=== PATIENT | male | born 1950 | race Caucasian/White ===

== ENCOUNTER 2019-09-07 19:11 | Inpatient (IN) ==
[2019-09-07] MEDS ORDERED: Isovue-370 500 ML BOTTLE IVP ONE (20:03)
[2019-09-07] MEDS ORDERED: 0.9 % Sodium Chloride 1,000 ML IVC ONE (20:07)
[2019-09-07 20:51] LABS: Basophils # 0.1 K/mcL (0.0-0.2); Basophils % 0.4 %; Eosinophils # 0.5 K/mcL (0.0-0.6); Eosinophils % 3.9 %; Hemoglobin 11.1 g/dL (12.9-16.9); Immature Granulocytes % 0.6 % (0-4); Lymphocytes # 1.3 K/mcL (0.6-4.6); Lymphocytes % 10.7 %; Mean Corpuscular Hemoglobin 28.5 pg (28.0-33.3); Mean Corpuscular Volume 94.9 fL (83.0-100.0); Mean Platelet Volume 10.3 fL (9.4-12.4); Monocytes % 8.7 %; Platelet Count 303 K/mcL (140-400); Red Cell Distribution Width 15.2 % (11.5-14.5); Segmented Neutrophils % 75.7 %; White Blood Count 11.9 K/mcL (4.3-11.1)
[2019-09-07 21:11] LABS: Alanine Aminotransferase 12 Units/L (7-52); Albumin 3.4 g/dL (3.5-5.7); Alkaline Phosphatase 92 Units/L (34-104); Aspartate Amino Transferase 20 Units/L (13-39); BUN/Creatinine Ratio 45 (6-26); Bilirubin,Direct 0.2 mg/dL (0.0-0.2); Bilirubin,Indirect 0.4 mg/dL (0.0-1.0); Bilirubin,Total 0.6 mg/dL (0.3-1.0); Blood Urea Nitrogen 38 mg/dL (8-23); Calcium 9.3 mg/dL (8.6-10.3); Carbon Dioxide 27 mEq/L (23-29); Chloride 100 mEq/L (98-107); Globulin 3.5 g/dL (2.4-3.5); Glucose 138 mg/dL (70-105); Osmolality,Calculated 293 (280-300); Sodium 136 mEq/L (136-145); Total Protein 6.9 g/dL (6.4-8.9); eGFR For African Americans > 60 (> 60); eGFR For Non-African Americans > 60 (> 60)
[2019-09-07] MEDS ORDERED: Albuterol 2.5 MG/3 ML NEBULIZER IH ONE (23:13)
[2019-09-07] MEDS ORDERED: *HR* OxyCODONE/APAP 10/325 TABLET PO ONE (23:13)
[2019-09-07] MEDS ORDERED: cefTRIAXone 1,000 MG in Water for inj. (sterile) 10 ML IVP ONE (23:37)
[2019-09-08] MEDS ORDERED: Ondansetron 4 MG/2 ML VIAL IVP PRN (00:13)
[2019-09-08] MEDS ORDERED: Naloxone 0.4 MG/ML INJ IVP PRN (00:13)
[2019-09-08] MEDS ORDERED: D5% in Water 1,000 ML IVC PRN (00:17)
[2019-09-08] MEDS ORDERED: Dextrose Gel 15 GM/37.5 ML TUBE PO PRN ×2 (00:17)
[2019-09-08] MEDS ORDERED: *HR* Dextrose 50 % in Water (Vial) 50 ML VIAL IVP PRN (00:17)
[2019-09-08] MEDS: Ringers Solution, Lactated 1,000 ML IVC SCH ×2 (02:14→15:21)
[2019-09-08 03:40] LABS: Basophils # 0.1 K/mcL (0.0-0.2); Basophils % 0.5 %; Eosinophils # 0.6 K/mcL (0.0-0.6); Eosinophils % 5.8 %; Hematocrit 35.4 % (37.5-50.1); Hemoglobin 10.7 g/dL (12.9-16.9); Immature Granulocytes % 0.5 % (0-4); Lymphocytes # 1.7 K/mcL (0.6-4.6); Lymphocytes % 16.8 %; Mean Corpuscular HGB Conc 30.2 g/dL (31.6-35.5); Mean Corpuscular Hemoglobin 29.2 pg (28.0-33.3); Mean Corpuscular Volume 96.7 fL (83.0-100.0); Mean Platelet Volume 10.4 fL (9.4-12.4); Monocytes % 9.8 %; Neutrophils # 6.7 K/mcL (1.6-8.9); Platelet Count 268 K/mcL (140-400); Red Blood Count 3.66 M/mcL (4.19-5.50); Red Cell Distribution Width 15.2 % (11.5-14.5); Segmented Neutrophils % 66.6 %
[2019-09-08 03:48] LABS: INR 1.4; Prothrombin Time 15.7 Seconds (9.4-12.1)
[2019-09-08 03:56] LABS: Alanine Aminotransferase 10 Units/L (7-52); Albumin 3.2 g/dL (3.5-5.7); Alkaline Phosphatase 86 Units/L (34-104); Aspartate Amino Transferase 18 Units/L (13-39); BUN/Creatinine Ratio 46 (6-26); Bilirubin,Total 0.4 mg/dL (0.3-1.0); Blood Urea Nitrogen 33 mg/dL (8-23); Calcium 8.4 mg/dL (8.6-10.3); Carbon Dioxide 27 mEq/L (23-29); Chloride 103 mEq/L (98-107); Globulin 3.2 g/dL (2.4-3.5); Glucose 130 mg/dL (70-105); Magnesium 1.6 mg/dL (1.6-2.6); Osmolality,Calculated 293 (280-300); Sodium 137 mEq/L (136-145); Total Protein 6.4 g/dL (6.4-8.9); eGFR For African Americans > 60 (> 60); eGFR For Non-African Americans > 60 (> 60)
[2019-09-08] MEDS: Doxycycline 100 MG in 0.9 % Sodium Chloride Mini Bag 100 ML IVPB SCH ×2 (05:06→18:04)
[2019-09-08] MEDS: *HR* Enoxaparin 40 MG/0.4 ML SYRINGE SQ SCH (05:10)
[2019-09-08] MEDS: Aspirin 81 MG TAB.CHEW PO SCH (08:56)
[2019-09-08] MEDS: Loratadine 10 MG TABLET PO SCH (08:56)
[2019-09-08] MEDS: Insulin LISPRO 300 UNITS/3 ML VIAL SQ SCH ×4 (08:56→21:07)
[2019-09-08] MEDS: cefTRIAXone 1,000 MG in Water for inj. (sterile) 10 ML IVP SCH (08:57)
[2019-09-08] MEDS ORDERED: levoFLOXacin 750 MG/150 ML 750 MG/150 ML BAG IVPB SCH (09:00)
[2019-09-08] MEDS: Ipratropium/Albuterol Neb 3 ML IH PRN (09:37)
[2019-09-08] MEDS: *HR* OxyCODONE/APAP 10/325 TABLET PO PRN ×4 (09:42→23:44)
[2019-09-08] MEDS: Miconazole 2% ointment 141 APPL/141 GM TUBE TP SCH ×2 (15:42→21:08)
[2019-09-08 16:09] LABS: Bilirubin,Urine Negative (Negative); Blood,Urine Negative (Negative); Clarity,Urine Clear (Clear); Color,Urine Yellow (Yellow); Glucose,Urine (UA) Normal (Normal); Ketones,Urine Negative (Negative); Leukocyte Esterase,Urine Negative (Negative); Nitrite,Urine Negative (Negative); Protein,Urine Trace mg/dL (Neg-Trace); Specific Gravity,Urine > 1.030 (1.010-1.025); Urobilinogen,Urine Normal (Normal)
[2019-09-08] MEDS: Insulin DETEMIR 100 UNIT/ML X5UNITS SQ SCH (21:07)
[2019-09-09 03:55] LABS: Basophils # 0.1 K/mcL (0.0-0.2); Basophils % 0.7 %; Eosinophils # 0.5 K/mcL (0.0-0.6); Eosinophils % 6.5 %; Hematocrit 34.1 % (37.5-50.1); Hemoglobin 10.3 g/dL (12.9-16.9); Immature Granulocytes % 0.5 % (0-4); Lymphocytes # 2.2 K/mcL (0.6-4.6); Lymphocytes % 28.7 %; Mean Corpuscular HGB Conc 30.2 g/dL (31.6-35.5); Mean Corpuscular Hemoglobin 29.1 pg (28.0-33.3); Mean Corpuscular Volume 96.3 fL (83.0-100.0); Mean Platelet Volume 10.5 fL (9.4-12.4); Monocytes # 0.8 K/mcL (0.0-1.3); Monocytes % 10.3 %; Platelet Count 261 K/mcL (140-400); Red Blood Count 3.54 M/mcL (4.19-5.50); Red Cell Distribution Width 15.4 % (11.5-14.5); Segmented Neutrophils % 53.3 %; White Blood Count 7.6 K/mcL (4.3-11.1)
[2019-09-09 04:12] LABS: BUN/Creatinine Ratio 35 (6-26); Blood Urea Nitrogen 19 mg/dL (8-23); Calcium 8.1 mg/dL (8.6-10.3); Carbon Dioxide 28 mEq/L (23-29); Chloride 105 mEq/L (98-107); Glucose 105 mg/dL (70-105); Magnesium 1.5 mg/dL (1.6-2.6); Osmolality,Calculated 289 (280-300); Phosphorous 2.6 mg/dL (2.7-4.5); Potassium 4.1 mEq/L (3.5-5.1); Sodium 138 mEq/L (136-145); eGFR For African Americans > 60 (> 60); eGFR For Non-African Americans > 60 (> 60)
[2019-09-09] MEDS: *HR* Enoxaparin 40 MG/0.4 ML SYRINGE SQ SCH (06:03)
[2019-09-09] MEDS: Doxycycline 100 MG in 0.9 % Sodium Chloride Mini Bag 100 ML IVPB SCH ×2 (06:04→17:30)
[2019-09-09] MEDS: *HR* OxyCODONE/APAP 10/325 TABLET PO PRN ×4 (06:06→21:45)
[2019-09-09] MEDS: Insulin LISPRO 300 UNITS/3 ML VIAL SQ SCH ×4 (10:37→21:11)
[2019-09-09] MEDS: Loratadine 10 MG TABLET PO SCH (10:56)
[2019-09-09] MEDS: Aspirin 81 MG TAB.CHEW PO SCH (10:56)
[2019-09-09] MEDS: Magnesium Oxide 400 MG TABLET PO SCH ×2 (10:57→21:18)
[2019-09-09] MEDS: cefTRIAXone 1,000 MG in Water for inj. (sterile) 10 ML IVP SCH (10:58)
[2019-09-09] MEDS: Insulin DETEMIR 100 UNIT/ML X5UNITS SQ SCH (21:12)
[2019-09-10] MEDS: Miconazole 2% ointment 141 APPL/141 GM TUBE TP SCH (05:40)
[2019-09-10] MEDS: *HR* Enoxaparin 40 MG/0.4 ML SYRINGE SQ SCH (05:58)
[2019-09-10] MEDS: Doxycycline 100 MG in 0.9 % Sodium Chloride Mini Bag 100 ML IVPB SCH (05:58)
[2019-09-10] MEDS: *HR* OxyCODONE/APAP 10/325 TABLET PO PRN ×4 (06:42→22:18)
[2019-09-10] MEDS: Insulin LISPRO 300 UNITS/3 ML VIAL SQ SCH ×4 (08:09→19:18)
[2019-09-10] MEDS: Magnesium Oxide 400 MG TABLET PO SCH ×2 (08:15→19:19)
[2019-09-10] MEDS: Loratadine 10 MG TABLET PO SCH (08:15)
[2019-09-10] MEDS: cefTRIAXone 1,000 MG in Water for inj. (sterile) 10 ML IVP SCH (08:15)
[2019-09-10] MEDS: Aspirin 81 MG TAB.CHEW PO SCH (08:15)
[2019-09-10 09:20] LABS: Hematocrit 38.5 % (37.5-50.1); Hemoglobin 11.5 g/dL (12.9-16.9); Mean Corpuscular HGB Conc 29.9 g/dL (31.6-35.5); Mean Corpuscular Hemoglobin 29.5 pg (28.0-33.3); Mean Corpuscular Volume 98.7 fL (83.0-100.0); Mean Platelet Volume 9.8 fL (9.4-12.4); Platelet Count 216 K/mcL (140-400); Red Cell Distribution Width 15.2 % (11.5-14.5); White Blood Count 7.6 K/mcL (4.3-11.1)
[2019-09-10 09:41] LABS: BUN/Creatinine Ratio 29 (6-26); Blood Urea Nitrogen 14 mg/dL (8-23); Calcium 8.6 mg/dL (8.6-10.3); Carbon Dioxide 30 mEq/L (23-29); Chloride 102 mEq/L (98-107); Glucose 109 mg/dL (70-105); Magnesium 1.4 mg/dL (1.6-2.6); Osmolality,Calculated 287 (280-300); Potassium 4.1 mEq/L (3.5-5.1); Sodium 138 mEq/L (136-145); eGFR For African Americans > 60 (> 60); eGFR For Non-African Americans > 60 (> 60)
[2019-09-10] MEDS: Furosemide 40 MG TABLET PO SCH (18:00)
[2019-09-10] MEDS: Insulin DETEMIR 100 UNIT/ML X5UNITS SQ SCH (19:18)
[2019-09-10] MEDS: Doxycycline 100 MG CAPSULE PO SCH (19:19)
[2019-09-11] MEDS: *HR* OxyCODONE/APAP 10/325 TABLET PO PRN ×3 (04:32→16:49)
[2019-09-11 05:29] LABS: BUN/Creatinine Ratio 26 (6-26); Blood Urea Nitrogen 14 mg/dL (8-23); Calcium 8.6 mg/dL (8.6-10.3); Carbon Dioxide 34 mEq/L (23-29); Chloride 99 mEq/L (98-107); Glucose 101 mg/dL (70-105); Magnesium 1.6 mg/dL (1.6-2.6); Osmolality,Calculated 285 (280-300); Potassium 4.3 mEq/L (3.5-5.1); Sodium 137 mEq/L (136-145); eGFR For African Americans > 60 (> 60); eGFR For Non-African Americans > 60 (> 60)
[2019-09-11] MEDS: *HR* Enoxaparin 40 MG/0.4 ML SYRINGE SQ SCH (05:57)
[2019-09-11] MEDS: Miconazole 2% ointment 141 APPL/141 GM TUBE TP SCH (05:58)
[2019-09-11] MEDS: lisinopriL 10 MG TABLET PO SCH (08:57)
[2019-09-11] MEDS: Doxycycline 100 MG CAPSULE PO SCH (08:57)
[2019-09-11] MEDS: Aspirin 81 MG TAB.CHEW PO SCH (08:57)
[2019-09-11] MEDS: DilTIAZem CD (24hr) 120 MG CAP.ER.24H PO SCH (08:57)
[2019-09-11] MEDS: Magnesium Oxide 400 MG TABLET PO SCH ×2 (08:57→20:20)
[2019-09-11] MEDS: cefTRIAXone 1,000 MG in Water for inj. (sterile) 10 ML IVP SCH (08:58)
[2019-09-11] MEDS: Loratadine 10 MG TABLET PO SCH (08:58)
[2019-09-11] MEDS: Furosemide 40 MG TABLET PO SCH ×2 (08:58→16:44)
[2019-09-11] MEDS: Insulin LISPRO 300 UNITS/3 ML VIAL SQ SCH ×4 (08:59→20:08)
[2019-09-11] MEDS: Insulin DETEMIR 100 UNIT/ML X5UNITS SQ SCH (20:08)
[2019-09-11] MEDS: Cefdinir 300 MG CAPSULE PO SCH (20:19)
[2019-09-11] MEDS ORDERED: Ketorolac 15 MG/ML VIAL IVP ONE (23:07)
[2019-09-12] MEDS: *HR* Enoxaparin 40 MG/0.4 ML SYRINGE SQ SCH (05:28)
[2019-09-12] MEDS: Insulin LISPRO 300 UNITS/3 ML VIAL SQ SCH ×4 (08:47→21:07)
[2019-09-12] MEDS: Cefdinir 300 MG CAPSULE PO SCH ×2 (08:47→21:34)
[2019-09-12] MEDS: Furosemide 40 MG TABLET PO SCH ×2 (08:48→18:07)
[2019-09-12] MEDS: Aspirin 81 MG TAB.CHEW PO SCH (08:48)
[2019-09-12] MEDS: Magnesium Oxide 400 MG TABLET PO SCH (08:48)
[2019-09-12] MEDS: Loratadine 10 MG TABLET PO SCH (08:48)
[2019-09-12] MEDS: Miconazole 2% ointment 141 APPL/141 GM TUBE TP SCH (08:48)
[2019-09-12] MEDS: lisinopriL 10 MG TABLET PO SCH (08:49)
[2019-09-12] MEDS: *HR* OxyCODONE/APAP 10/325 TABLET PO PRN ×4 (08:55→22:13)
[2019-09-12] MEDS: DilTIAZem CD (24hr) 120 MG CAP.ER.24H PO SCH (08:56)
[2019-09-12] MEDS: Ipratropium/Albuterol Neb 3 ML IH PRN (09:20)
[2019-09-12] MEDS: Insulin DETEMIR 100 UNIT/ML X5UNITS SQ SCH (21:16)
[2019-09-13 01:35] VITALS: BP 98/70
[2019-09-13] MEDS: *HR* OxyCODONE/APAP 10/325 TABLET PO PRN ×4 (02:20→16:30)
[2019-09-13] MEDS: *HR* Enoxaparin 40 MG/0.4 ML SYRINGE SQ SCH (06:05)
[2019-09-13 06:33] LABS: Hematocrit 35.5 % (37.5-50.1); Mean Corpuscular Hemoglobin 29.5 pg (28.0-33.3); Mean Corpuscular Volume 95.2 fL (83.0-100.0); Platelet Count 196 K/mcL (140-400); Red Blood Count 3.73 M/mcL (4.19-5.50); White Blood Count 7.2 K/mcL (4.3-11.1)
[2019-09-13 06:49] LABS: BUN/Creatinine Ratio 26 (6-26); Blood Urea Nitrogen 14 mg/dL (8-23); Calcium 8.3 mg/dL (8.6-10.3); Carbon Dioxide 34 mEq/L (23-29); Chloride 95 mEq/L (98-107); Glucose 104 mg/dL (70-105); Osmolality,Calculated 277 (280-300); Potassium 4.2 mEq/L (3.5-5.1); Sodium 133 mEq/L (136-145); eGFR For African Americans > 60 (> 60); eGFR For Non-African Americans > 60 (> 60)
[2019-09-13] MEDS: Insulin LISPRO 300 UNITS/3 ML VIAL SQ SCH (08:08)
[2019-09-13] MEDS: Aspirin 81 MG TAB.CHEW PO SCH (08:44)
[2019-09-13] MEDS: DilTIAZem CD (24hr) 120 MG CAP.ER.24H PO SCH (08:44)
[2019-09-13] MEDS: Furosemide 40 MG TABLET PO SCH (08:44)
[2019-09-13] MEDS: Cefdinir 300 MG CAPSULE PO SCH (08:45)
[2019-09-13] MEDS: Loratadine 10 MG TABLET PO SCH (08:48)
[2019-09-13] MEDS: lisinopriL 10 MG TABLET PO SCH (08:48)
[2019-09-13] MEDS: Miconazole 2% ointment 141 APPL/141 GM TUBE TP SCH (08:48)
== END 2019-09-13 16:50 | DRG 871 ==
LOC: 3BNU 19:11 → EMEROOARM 19:11 → SUATTDRO 09-08 01:06 → 3BNU 09-08 02:09
PROVIDERS: ADMIT Family Medicine; ATTEND Internal Medicine

== ENCOUNTER 2020-08-25 20:10 | Inpatient (IN) ==
[2020-08-25 22:20] LABS: Eosinophils % 1.4 %
[2020-08-25 22:22] LABS: Basophils % 0.3 %; Eosinophils # 0.2 K/mcL (0.0-0.6); Hemoglobin 11.3 g/dL (12.9-16.9); Immature Granulocytes % 0.7 % (0-4); Lymphocytes # 1.4 K/mcL (0.6-4.6); Lymphocytes % 9.1 %; Mean Corpuscular HGB Conc 29.7 g/dL (31.6-35.5); Mean Corpuscular Hemoglobin 29.5 pg (28.0-33.3); Mean Corpuscular Volume 99.2 fL (83.0-100.0); Mean Platelet Volume 10.5 fL (9.4-12.4); Monocytes % 6.4 %; Neutrophils # 12.9 K/mcL (1.6-8.9); Platelet Count 264 K/mcL (140-400); Red Blood Count 3.83 M/mcL (4.19-5.50); Red Cell Distribution Width 15.5 % (11.5-14.5); Segmented Neutrophils % 82.1 %; White Blood Count 15.7 K/mcL (4.3-11.1)
[2020-08-25 22:26] LABS: Basophils # 0.1 K/mcL (0.0-0.2)
[2020-08-25 22:43] LABS: BUN/Creatinine Ratio 28 (6-26); Blood Urea Nitrogen 22 mg/dL (8-23); Calcium 8.3 mg/dL (8.6-10.3); Carbon Dioxide 35 mEq/L (23-29); Chloride 98 mEq/L (98-107); Glucose 133 mg/dL (70-105); Osmolality,Calculated 295 (280-300); Potassium 4.5 mEq/L (3.5-5.1); Sodium 140 mEq/L (136-145); eGFR For African Americans > 60 (> 60); eGFR For Non-African Americans > 60 (> 60)
[2020-08-25] MEDS ORDERED: Furosemide 40 MG/4 ML VIAL IVP ONE (23:28)
[2020-08-25 23:58] LABS: VBG HCO3 41 mEq/L (21-27); VBG PCO2 86 mmHg (41-51); VBG PH 7.28 pH Units (7.32-7.42); VBG PO2 143 mmHg (25-50)
[2020-08-26] MEDS ORDERED: *HR* OxyCODONE/APAP 5/325 TABLET PO ONE (00:11)
[2020-08-26 00:18] LABS: ABG Base Excess 9 mEq/L (-2 to 3); ABG HCO3 39 mEq/L (21-27); ABG Oxygen Saturation 94 % (95-98); ABG PCO2 80 mmHg (35-45); ABG PH 7.29 pH Units (7.32-7.45); ABG PO2 84 mmHg (85-104); ABG TCO2 41 mEq/L (20-26)
[2020-08-26] MEDS ORDERED: *HR* FentaNYL (PF) 100 MCG/2 ML VIAL IVP ONE (00:55)
[2020-08-26] MEDS ORDERED: Ondansetron 4 MG/2 ML VIAL IVP PRN (01:10)
[2020-08-26] MEDS ORDERED: Naloxone 0.4 MG/ML INJ IVP PRN (01:10)
[2020-08-26] MEDS ORDERED: Acetaminophen 325 MG TABLET PO PRN (01:10)
[2020-08-26] MEDS ORDERED: *HR* Dextrose 50 % in Water (Vial) 50 ML VIAL IVP PRN (02:06)
[2020-08-26] MEDS ORDERED: D5% in Water 1,000 ML IVC PRN (02:06)
[2020-08-26] MEDS ORDERED: Dextrose Gel 15 GM/37.5 ML TUBE PO PRN ×2 (02:06)
[2020-08-26 02:09] LABS: Adenovirus Not Detected (Not Detect); Bordetella Pertussis Not Detected (Not Detect); Chlamydophila pneumoniae Not Detected (Not Detect); Coronavirus 229E Not Detected (Not Detect); Coronavirus HKU1 Not Detected (Not Detect); Coronavirus NL63 Not Detected (Not Detect); Coronavirus OC43 Not Detected (Not Detect); Human Metapneumovirus Not Detected (Not Detect); Human Rhinovirus/Enterovirus Not Detected (Not Detect); Influenza A Subtype 2009 H1 Not Detected (Not Detect); Influenza B Not Detected (Not Detect); Mycoplasma pneumoniae Not Detected (Not Detect); Parainfluenza Virus 1 Not Detected (Not Detect); Parainfluenza Virus 2 Not Detected (Not Detect); Parainfluenza Virus 3 Not Detected (Not Detect); Parainfluenza Virus 4 Not Detected (Not Detect); Respiratory Syncytial Virus Not Detected (Not Detect); SARS-CoV-2 Not Detected (Not Detect)
[2020-08-26] MEDS ORDERED: 0.9 % Sodium Chloride 1,000 ML IVC ONE (02:44)
[2020-08-26] MEDS ORDERED: 0.9 % Sodium Chloride 1,000 ML IVC SCH (02:45)
[2020-08-26] MEDS ORDERED: *HR* OxyCODONE/APAP 10/325 TABLET PO PRN ×2 (02:57→16:33)
[2020-08-26] MEDS ORDERED: *HR* OxyCODONE/APAP 10/325 TABLET PO SCH (03:00)
[2020-08-26] MEDS: Piperacillin/Tazobactam 3.375 GM in 0.9 % Sodium Chloride Mini Bag 100 ML IVPB SCH ×3 (03:01→16:54)
[2020-08-26] MEDS: Nystatin POWDER 30 GM BOTTLE TP SCH ×4 (03:08→20:23)
[2020-08-26] MEDS: Insulin LISPRO 300 UNITS/3 ML VIAL SUBQ SCH ×5 (03:08→20:23)
[2020-08-26] MEDS: Vancomycin 2,000 MG/520 ML IV.SOLN IVPB SCH ×2 (04:42→16:55)
[2020-08-26 05:56] LABS: VBG HCO3 35 mEq/L (21-27); VBG PCO2 73 mmHg (41-51); VBG PH 7.28 pH Units (7.32-7.42); VBG PO2 161 mmHg (25-50)
[2020-08-26 06:07] LABS: Basophils % 0.4 %; Mean Platelet Volume 10.8 fL (9.4-12.4); Red Cell Distribution Width 15.4 % (11.5-14.5)
[2020-08-26 06:08] LABS: Basophils # 0.1 K/mcL (0.0-0.2); Eosinophils # 0.3 K/mcL (0.0-0.6); Eosinophils % 2.1 %; Hematocrit 39.1 % (37.5-50.1); Hemoglobin 11.3 g/dL (12.9-16.9); Immature Granulocytes % 1.1 % (0-4); Lymphocytes # 1.9 K/mcL (0.6-4.6); Lymphocytes % 13.7 %; Mean Corpuscular HGB Conc 28.9 g/dL (31.6-35.5); Mean Corpuscular Hemoglobin 29.1 pg (28.0-33.3); Mean Corpuscular Volume 100.8 fL (83.0-100.0); Monocytes % 7.7 %; Platelet Count 236 K/mcL (140-400); Red Blood Count 3.88 M/mcL (4.19-5.50); White Blood Count 13.5 K/mcL (4.3-11.1)
[2020-08-26 06:17] LABS: Neutrophils # 10.1 K/mcL (1.6-8.9)
[2020-08-26 06:19] LABS: BUN/Creatinine Ratio 30 (6-26); Blood Urea Nitrogen 23 mg/dL (8-23); Calcium 8.2 mg/dL (8.6-10.3); Carbon Dioxide 36 mEq/L (23-29); Chloride 101 mEq/L (98-107); Glucose 120 mg/dL (70-105); Magnesium 1.4 mg/dL (1.6-2.6); Osmolality,Calculated 297 (280-300); Potassium 3.9 mEq/L (3.5-5.1); Sodium 141 mEq/L (136-145); eGFR For African Americans > 60 (> 60); eGFR For Non-African Americans > 60 (> 60)
[2020-08-26 08:39] LABS: Estimated Average Glucose 117 mg/dl; Hemoglobin A1C 5.7 %
[2020-08-26] MEDS: FentaNYL (PF) 1,000 MCG/100 ML IV.SOLN IVC SCH (09:12)
[2020-08-26] MEDS: *HR* Enoxaparin 40 MG/0.4 ML SYRINGE SQ SCH (09:19)
[2020-08-26] MEDS ORDERED: Perflutren Lipid Microsphere 1.3 ML in 0.9 % Sodium Chloride 8.7 ML IVP PRN (09:40)
[2020-08-26] MEDS: Furosemide 40 MG/4 ML VIAL IVP SCH ×2 (09:53→20:22)
[2020-08-26 10:13] LABS: ABG Base Excess 9 mEq/L (-2 to 3); ABG HCO3 37 mEq/L (21-27); ABG Oxygen Saturation 88 % (95-98); ABG PCO2 62 mmHg (35-45); ABG PH 7.38 pH Units (7.32-7.45); ABG PO2 57 mmHg (85-104); ABG TCO2 39 mEq/L (20-26); Blood Gas Modality CPAP/PS; Blood Gas Pressure Support 12 cm H2O
[2020-08-26] MEDS ORDERED: Ipratropium/Albuterol Neb 3 ML ONE (10:14)
[2020-08-26] MEDS: Ipratropium/Albuterol Neb 3 ML IH SCH ×3 (10:32→21:15)
[2020-08-26 10:50] LABS: Bilirubin,Urine Negative (Negative); Blood,Urine Negative (Negative); Clarity,Urine Clear (Clear); Color,Urine Light-Yellow (Yellow); Glucose,Urine (UA) Normal (Normal); Ketones,Urine Negative (Negative); Leukocyte Esterase,Urine Negative (Negative); Nitrite,Urine Negative (Negative); Protein,Urine Negative (Neg-Trace); Specific Gravity,Urine 1.015 (1.010-1.025); Urobilinogen,Urine Normal (Normal)
[2020-08-26] MEDS ORDERED: Fluticasone Propionate Nasal 50 MCG/SPRAY BOTTLE NS PRN (16:33)
[2020-08-26] MEDS ORDERED: Bisacodyl 10 MG RECTAL SUPPOSITORY RC PRN (16:33)
[2020-08-26] MEDS ORDERED: Mag Hydrox/Al Hydrox/Simeth 30 ML UDC PO PRN (16:45)
[2020-08-26] MEDS ORDERED: Ondansetron ODT 4 MG TAB.RAPDIS PO PRN (16:46)
[2020-08-26] MEDS: Simethicone 80 MG TAB.CHEW PO SCH ×2 (16:58→20:22)
[2020-08-26] MEDS: Budesonide/Formoterol 160/4.5 1 PUFF INH IH SCH (21:15)
[2020-08-27] MEDS: Ipratropium/Albuterol Neb 3 ML IH SCH ×4 (03:29→21:55)
[2020-08-27] MEDS: Vancomycin 2,000 MG/520 ML IV.SOLN IVPB SCH ×2 (04:21→17:11)
[2020-08-27] MEDS: Piperacillin/Tazobactam 3.375 GM in 0.9 % Sodium Chloride Mini Bag 100 ML IVPB SCH ×3 (04:21→17:12)
[2020-08-27 05:53] LABS: Basophils % 0.2 %; Eosinophils # 0.5 K/mcL (0.0-0.6); Eosinophils % 3.7 %; Hematocrit 35.4 % (37.5-50.1); Hemoglobin 10.4 g/dL (12.9-16.9); Immature Granulocytes % 0.6 % (0-4); Lymphocytes # 1.7 K/mcL (0.6-4.6); Lymphocytes % 13.7 %; Mean Corpuscular HGB Conc 29.4 g/dL (31.6-35.5); Mean Corpuscular Hemoglobin 28.3 pg (28.0-33.3); Mean Corpuscular Volume 96.5 fL (83.0-100.0); Mean Platelet Volume 10.3 fL (9.4-12.4); Monocytes # 0.8 K/mcL (0.0-1.3); Monocytes % 6.8 %; Neutrophils # 9.3 K/mcL (1.6-8.9); Platelet Count 216 K/mcL (140-400); Red Blood Count 3.67 M/mcL (4.19-5.50); Red Cell Distribution Width 15.1 % (11.5-14.5); White Blood Count 12.4 K/mcL (4.3-11.1)
[2020-08-27 06:03] LABS: VBG HCO3 40 mEq/L (21-27); VBG PCO2 50 mmHg (41-51); VBG PH 7.51 pH Units (7.32-7.42); VBG PO2 113 mmHg (25-50)
[2020-08-27 06:17] LABS: BUN/Creatinine Ratio 33 (6-26); Blood Urea Nitrogen 15 mg/dL (8-23); Calcium 8.3 mg/dL (8.6-10.3); Carbon Dioxide 39 mEq/L (23-29); Chloride 98 mEq/L (98-107); Glucose 120 mg/dL (70-105); Magnesium 1.2 mg/dL (1.6-2.6); Osmolality,Calculated 296 (280-300); Potassium 3.4 mEq/L (3.5-5.1); Sodium 142 mEq/L (136-145); eGFR For African Americans > 60 (> 60); eGFR For Non-African Americans > 60 (> 60)
[2020-08-27] MEDS: *HR* Enoxaparin 40 MG/0.4 ML SYRINGE SQ SCH (06:32)
[2020-08-27] MEDS: Insulin LISPRO 300 UNITS/3 ML VIAL SUBQ SCH ×4 (08:20→20:23)
[2020-08-27] MEDS: Furosemide 40 MG/4 ML VIAL IVP SCH ×2 (08:28→20:21)
[2020-08-27] MEDS: Simethicone 80 MG TAB.CHEW PO SCH ×4 (08:29→20:22)
[2020-08-27] MEDS: Nystatin POWDER 30 GM BOTTLE TP SCH ×3 (08:30→20:22)
[2020-08-27] MEDS ORDERED: Perflutren Lipid Microsphere 1.3 ML in 0.9 % Sodium Chloride 8.7 ML IVP PRN ×2 (08:45→17:50)
[2020-08-27] MEDS ORDERED: lisinopriL 10 MG TABLET PO SCH (09:00)
[2020-08-27] MEDS ORDERED: DilTIAZem CD (24hr) 120 MG CAP.ER.24H PO SCH (09:00)
[2020-08-27] MEDS ORDERED: polyethylene glycoL 3350 17 GM POWD.PACK PO SCH (09:00)
[2020-08-27] MEDS ORDERED: Aspirin 81 MG TAB.CHEW PO SCH (09:00)
[2020-08-27] MEDS ORDERED: Magnesium Oxide 400 MG TABLET PO SCH (09:00)
[2020-08-27] MEDS ORDERED: Loratadine 10 MG TABLET PO SCH (09:00)
[2020-08-27] MEDS: Budesonide/Formoterol 160/4.5 1 PUFF INH IH SCH ×2 (09:49→21:55)
[2020-08-27] MEDS ORDERED: Potassium Chloride Elixir 20 MEQ/15 ML UDC PO SCH ×2 (14:15→21:00)
[2020-08-27] MEDS: FentaNYL (PF) 1,000 MCG/100 ML IV.SOLN IVC SCH (17:46)
[2020-08-27] MEDS ORDERED: Bisacodyl 10 MG RECTAL SUPPOSITORY RC PRN (17:50)
[2020-08-27] MEDS ORDERED: FentaNYL (PF) 1,000 MCG/100 ML IV.SOLN IVC SCH (17:50)
[2020-08-27] MEDS ORDERED: Fluticasone Propionate Nasal 50 MCG/SPRAY BOTTLE NS PRN (17:50)
[2020-08-27] MEDS ORDERED: Mag Hydrox/Al Hydrox/Simeth 30 ML UDC PO PRN (17:50)
[2020-08-27] MEDS ORDERED: *HR* Dextrose 50 % in Water (Vial) 50 ML VIAL IVP PRN (17:50)
[2020-08-27] MEDS ORDERED: Naloxone 0.4 MG/ML INJ IVP PRN (17:50)
[2020-08-27] MEDS ORDERED: D5% in Water 1,000 ML IVC PRN (17:50)
[2020-08-27] MEDS ORDERED: Dextrose Gel 15 GM/37.5 ML TUBE PO PRN ×2 (17:50)
[2020-08-27] MEDS: Magnesium Oxide 400 MG TABLET PO SCH (20:21)
[2020-08-27] MEDS: *HR* OxyCODONE/APAP 10/325 TABLET PO PRN (20:31)
[2020-08-27 23:45] LABS: Magnesium 1.7 mg/dL (1.6-2.6); Potassium 3.9 mEq/L (3.5-5.1)
[2020-08-28] MEDS: Ipratropium/Albuterol Neb 3 ML IH SCH ×4 (03:19→22:51)
[2020-08-28 04:55] LABS: Basophils % 0.3 %; Eosinophils # 0.7 K/mcL (0.0-0.6); Eosinophils % 4.8 %; Hematocrit 39.6 % (37.5-50.1); Hemoglobin 11.6 g/dL (12.9-16.9); Immature Granulocytes % 0.4 % (0-4); Lymphocytes # 1.9 K/mcL (0.6-4.6); Mean Corpuscular HGB Conc 29.3 g/dL (31.6-35.5); Mean Corpuscular Hemoglobin 28.7 pg (28.0-33.3); Mean Platelet Volume 10.6 fL (9.4-12.4); Monocytes # 1.1 K/mcL (0.0-1.3); Monocytes % 7.7 %; Platelet Count 271 K/mcL (140-400); Red Blood Count 4.04 M/mcL (4.19-5.50); Red Cell Distribution Width 14.8 % (11.5-14.5); Segmented Neutrophils % 72.8 %; White Blood Count 13.8 K/mcL (4.3-11.1)
[2020-08-28 04:58] LABS: VBG HCO3 47 mEq/L (21-27); VBG PCO2 103 mmHg (41-51); VBG PH 7.27 pH Units (7.32-7.42); VBG PO2 56 mmHg (25-50)
[2020-08-28 05:09] LABS: BUN/Creatinine Ratio 20 (6-26); Blood Urea Nitrogen 10 mg/dL (8-23); Calcium 8.8 mg/dL (8.6-10.3); Carbon Dioxide 44 mEq/L (23-29); Chloride 95 mEq/L (98-107); Glucose 143 mg/dL (70-105); Magnesium 1.6 mg/dL (1.6-2.6); Osmolality,Calculated 296 (280-300); Potassium 3.7 mEq/L (3.5-5.1); Sodium 142 mEq/L (136-145); eGFR For African Americans > 60 (> 60); eGFR For Non-African Americans > 60 (> 60)
[2020-08-28] MEDS: *HR* Enoxaparin 40 MG/0.4 ML SYRINGE SQ SCH (06:20)
[2020-08-28] MEDS: Potassium Chloride Elixir 20 MEQ/15 ML UDC PO SCH (08:11)
[2020-08-28] MEDS: Simethicone 80 MG TAB.CHEW PO SCH ×4 (08:12→19:32)
[2020-08-28] MEDS: lisinopriL 10 MG TABLET PO SCH (08:13)
[2020-08-28] MEDS: DilTIAZem CD (24hr) 120 MG CAP.ER.24H PO SCH (08:13)
[2020-08-28] MEDS: Magnesium Oxide 400 MG TABLET PO SCH ×2 (08:13→19:33)
[2020-08-28] MEDS: Loratadine 10 MG TABLET PO SCH (08:13)
[2020-08-28] MEDS: Furosemide 40 MG/4 ML VIAL IVP SCH ×2 (08:14→17:11)
[2020-08-28] MEDS: Aspirin 81 MG TAB.CHEW PO SCH (08:15)
[2020-08-28] MEDS: Insulin LISPRO 300 UNITS/3 ML VIAL SUBQ SCH ×4 (08:15→19:37)
[2020-08-28] MEDS: Nystatin POWDER 30 GM BOTTLE TP SCH ×3 (08:16→19:39)
[2020-08-28] MEDS: *HR* OxyCODONE/APAP 10/325 TABLET PO PRN ×3 (08:53→19:43)
[2020-08-28] MEDS ORDERED: polyethylene glycoL 3350 17 GM POWD.PACK PO SCH (09:00)
[2020-08-28] MEDS ORDERED: Potassium Chloride Elixir 20 MEQ/15 ML UDC PO SCH (09:00)
[2020-08-28] MEDS: Budesonide/Formoterol 160/4.5 1 PUFF INH IH SCH ×2 (11:02→22:52)
[2020-08-28] MEDS: Piperacillin/Tazobactam 3.375 GM in 0.9 % Sodium Chloride Mini Bag 100 ML IVPB SCH ×2 (15:24→23:08)
[2020-08-28] MEDS: Ondansetron ODT 4 MG TAB.RAPDIS PO PRN (18:27)
[2020-08-28] MEDS: Ondansetron 4 MG/2 ML VIAL IVP PRN (22:47)
[2020-08-29] MEDS: *HR* OxyCODONE/APAP 10/325 TABLET PO PRN (00:24)
[2020-08-29] MEDS ORDERED: Prochlorperazine 10 MG/2 ML VIAL IVP PRN (02:42)
[2020-08-29] MEDS: Ipratropium/Albuterol Neb 3 ML IH SCH ×4 (04:20→23:33)
[2020-08-29] MEDS: *HR* Promethazine 25 MG/ML VIAL IM PRN ×2 (04:28→17:38)
[2020-08-29] MEDS ORDERED: Acetaminophen IV 1,000 MG/100 ML BAG IVPB ONE (04:38)
[2020-08-29] MEDS ORDERED: Haloperidol Lactate 5 MG/ML VIAL IVP ONE (05:01)
[2020-08-29 05:23] LABS: Hematocrit 38.9 % (37.5-50.1); Hemoglobin 11.5 g/dL (12.9-16.9); Mean Corpuscular HGB Conc 29.6 g/dL (31.6-35.5); Mean Corpuscular Hemoglobin 28.4 pg (28.0-33.3); Mean Platelet Volume 10.8 fL (9.4-12.4); Platelet Count 252 K/mcL (140-400); Red Blood Count 4.05 M/mcL (4.19-5.50); Red Cell Distribution Width 14.9 % (11.5-14.5); White Blood Count 12.5 K/mcL (4.3-11.1)
[2020-08-29 05:25] LABS: VBG HCO3 41 mEq/L (21-27); VBG PCO2 46 mmHg (41-51); VBG PH 7.56 pH Units (7.32-7.42); VBG PO2 124 mmHg (25-50)
[2020-08-29 06:22] LABS: BUN/Creatinine Ratio 24 (6-26); Blood Urea Nitrogen 12 mg/dL (8-23); Carbon Dioxide 40 mEq/L (23-29); Chloride 93 mEq/L (98-107); Glucose 128 mg/dL (70-105); Osmolality,Calculated 291 (280-300); Potassium 3.8 mEq/L (3.5-5.1); Sodium 140 mEq/L (136-145); eGFR For African Americans > 60 (> 60); eGFR For Non-African Americans > 60 (> 60)
[2020-08-29] MEDS: Furosemide 40 MG/4 ML VIAL IVP SCH ×2 (07:50→16:47)
[2020-08-29] MEDS: Piperacillin/Tazobactam 3.375 GM in 0.9 % Sodium Chloride Mini Bag 100 ML IVPB SCH ×2 (07:50→16:25)
[2020-08-29] MEDS: Potassium Chloride Elixir 20 MEQ/15 ML UDC PO SCH (07:51)
[2020-08-29] MEDS: lisinopriL 10 MG TABLET PO SCH (07:52)
[2020-08-29] MEDS: DilTIAZem CD (24hr) 120 MG CAP.ER.24H PO SCH (07:52)
[2020-08-29] MEDS: Magnesium Oxide 400 MG TABLET PO SCH ×2 (07:52→20:48)
[2020-08-29] MEDS: Simethicone 80 MG TAB.CHEW PO SCH ×4 (07:52→20:48)
[2020-08-29] MEDS: Aspirin 81 MG TAB.CHEW PO SCH (07:52)
[2020-08-29] MEDS: Loratadine 10 MG TABLET PO SCH (07:52)
[2020-08-29] MEDS: Insulin LISPRO 300 UNITS/3 ML VIAL SUBQ SCH ×4 (07:53→20:48)
[2020-08-29] MEDS: Bisacodyl 10 MG RECTAL SUPPOSITORY RC SCH (07:53)
[2020-08-29] MEDS: *HR* Enoxaparin 40 MG/0.4 ML SYRINGE SQ SCH (07:55)
[2020-08-29] MEDS: Nystatin POWDER 30 GM BOTTLE TP SCH ×3 (08:07→20:49)
[2020-08-29] MEDS: Budesonide/Formoterol 160/4.5 1 PUFF INH IH SCH ×2 (10:37→23:34)
[2020-08-29] MEDS: Ondansetron ODT 4 MG TAB.RAPDIS PO PRN (11:44)
[2020-08-29] MEDS ORDERED: *HR* Labetalol 20 MG/4 ML SYRINGE IVP PRN (17:13)
[2020-08-30] MEDS: Piperacillin/Tazobactam 3.375 GM in 0.9 % Sodium Chloride Mini Bag 100 ML IVPB SCH ×3 (00:07→16:41)
[2020-08-30] MEDS: Ipratropium/Albuterol Neb 3 ML IH SCH ×4 (04:13→22:56)
[2020-08-30] MEDS: Insulin LISPRO 300 UNITS/3 ML VIAL SUBQ SCH ×4 (07:52→21:57)
[2020-08-30] MEDS: DilTIAZem CD (24hr) 120 MG CAP.ER.24H PO SCH (07:52)
[2020-08-30] MEDS: Aspirin 81 MG TAB.CHEW PO SCH (07:52)
[2020-08-30] MEDS: Magnesium Oxide 400 MG TABLET PO SCH ×2 (07:52→21:40)
[2020-08-30] MEDS: Simethicone 80 MG TAB.CHEW PO SCH ×4 (07:53→21:39)
[2020-08-30] MEDS: Loratadine 10 MG TABLET PO SCH (07:53)
[2020-08-30] MEDS: lisinopriL 10 MG TABLET PO SCH (07:53)
[2020-08-30] MEDS: Furosemide 40 MG/4 ML VIAL IVP SCH ×2 (07:55→16:43)
[2020-08-30] MEDS: *HR* Enoxaparin 40 MG/0.4 ML SYRINGE SQ SCH (07:55)
[2020-08-30] MEDS: Potassium Chloride Elixir 20 MEQ/15 ML UDC PO SCH (08:00)
[2020-08-30] MEDS: Nystatin POWDER 30 GM BOTTLE TP SCH ×3 (08:03→22:28)
[2020-08-30] MEDS: Bisacodyl 10 MG RECTAL SUPPOSITORY RC SCH ×2 (08:04→19:03)
[2020-08-30 08:24] LABS: Hematocrit 41.6 % (37.5-50.1); Hemoglobin 12.5 g/dL (12.9-16.9); Mean Corpuscular Hemoglobin 28.7 pg (28.0-33.3); Mean Corpuscular Volume 95.4 fL (83.0-100.0); Mean Platelet Volume 10.1 fL (9.4-12.4); Platelet Count 237 K/mcL (140-400); Red Blood Count 4.36 M/mcL (4.19-5.50); Red Cell Distribution Width 14.8 % (11.5-14.5)
[2020-08-30 08:30] LABS: VBG HCO3 48 mEq/L (21-27); VBG PCO2 80 mmHg (41-51); VBG PH 7.38 pH Units (7.32-7.42); VBG PO2 48 mmHg (25-50)
[2020-08-30 08:51] LABS: BUN/Creatinine Ratio 30 (6-26); Blood Urea Nitrogen 15 mg/dL (8-23); Calcium 9.4 mg/dL (8.6-10.3); Carbon Dioxide 44 mEq/L (23-29); Chloride 90 mEq/L (98-107); Glucose 109 mg/dL (70-105); Magnesium 1.9 mg/dL (1.6-2.6); Osmolality,Calculated 289 (280-300); Potassium 3.6 mEq/L (3.5-5.1); Sodium 139 mEq/L (136-145); eGFR For African Americans > 60 (> 60); eGFR For Non-African Americans > 60 (> 60)
[2020-08-30] MEDS: Acetaminophen 325 MG TABLET PO PRN ×2 (09:51→18:11)
[2020-08-30] MEDS: Budesonide/Formoterol 160/4.5 1 PUFF INH IH SCH ×2 (10:53→22:56)
[2020-08-30 11:16] LABS: ABG Base Excess 13 mEq/L (-2 to 3); ABG HCO3 40 mEq/L (21-27); ABG Oxygen Saturation 95 % (95-98); ABG PCO2 60 mmHg (35-45); ABG PH 7.44 pH Units (7.32-7.45); ABG PO2 76 mmHg (85-104); ABG TCO2 42 mEq/L (20-26)
[2020-08-30] MEDS: Ondansetron 4 MG/2 ML VIAL IVP PRN (18:14)
[2020-08-30] MEDS: Ondansetron ODT 4 MG TAB.RAPDIS PO PRN (21:52)
[2020-08-31] MEDS: Piperacillin/Tazobactam 3.375 GM in 0.9 % Sodium Chloride Mini Bag 100 ML IVPB SCH ×2 (00:14→08:55)
[2020-08-31 03:07] LABS: VBG HCO3 44 mEq/L (21-27); VBG PCO2 58 mmHg (41-51); VBG PH 7.48 pH Units (7.32-7.42); VBG PO2 74 mmHg (25-50)
[2020-08-31 03:08] LABS: Hematocrit 38.2 % (37.5-50.1); Hemoglobin 11.3 g/dL (12.9-16.9); Mean Corpuscular HGB Conc 29.6 g/dL (31.6-35.5); Mean Corpuscular Volume 94.8 fL (83.0-100.0); Mean Platelet Volume 10.8 fL (9.4-12.4); Platelet Count 249 K/mcL (140-400); Red Blood Count 4.03 M/mcL (4.19-5.50); Red Cell Distribution Width 14.6 % (11.5-14.5); White Blood Count 13.7 K/mcL (4.3-11.1)
[2020-08-31 03:28] LABS: BUN/Creatinine Ratio 31 (6-26); Blood Urea Nitrogen 17 mg/dL (8-23); Carbon Dioxide 41 mEq/L (23-29); Chloride 90 mEq/L (98-107); Glucose 144 mg/dL (70-105); Magnesium 1.9 mg/dL (1.6-2.6); Osmolality,Calculated 292 (280-300); Potassium 3.1 mEq/L (3.5-5.1); Sodium 139 mEq/L (136-145); eGFR For African Americans > 60 (> 60); eGFR For Non-African Americans > 60 (> 60)
[2020-08-31] MEDS: Ipratropium/Albuterol Neb 3 ML IH SCH ×4 (03:40→21:43)
[2020-08-31] MEDS: Acetaminophen 325 MG TABLET PO PRN (03:50)
[2020-08-31] MEDS: Ondansetron ODT 4 MG TAB.RAPDIS PO PRN ×2 (03:54→14:33)
[2020-08-31] MEDS: *HR* Enoxaparin 40 MG/0.4 ML SYRINGE SQ SCH (06:11)
[2020-08-31] MEDS: Potassium Chloride Elixir 20 MEQ/15 ML UDC PO SCH (08:55)
[2020-08-31] MEDS: Loratadine 10 MG TABLET PO SCH (08:56)
[2020-08-31] MEDS: Aspirin 81 MG TAB.CHEW PO SCH (08:56)
[2020-08-31] MEDS: DilTIAZem CD (24hr) 120 MG CAP.ER.24H PO SCH (08:56)
[2020-08-31] MEDS: lisinopriL 10 MG TABLET PO SCH (08:57)
[2020-08-31] MEDS: Simethicone 80 MG TAB.CHEW PO SCH ×4 (08:57→21:12)
[2020-08-31] MEDS: Furosemide 40 MG/4 ML VIAL IVP SCH ×2 (08:57→17:21)
[2020-08-31] MEDS: Nystatin POWDER 30 GM BOTTLE TP SCH ×3 (08:57→21:12)
[2020-08-31] MEDS: Magnesium Oxide 400 MG TABLET PO SCH ×2 (08:57→21:12)
[2020-08-31] MEDS: Insulin LISPRO 300 UNITS/3 ML VIAL SUBQ SCH ×4 (09:08→21:12)
[2020-08-31] MEDS: Bisacodyl 10 MG RECTAL SUPPOSITORY RC SCH (09:09)
[2020-08-31] MEDS: Ondansetron 4 MG/2 ML VIAL IVP PRN ×2 (09:22→19:56)
[2020-08-31] MEDS: Budesonide/Formoterol 160/4.5 1 PUFF INH IH SCH ×2 (09:45→21:44)
[2020-08-31] MEDS: *HR* OxyCODONE/APAP 10/325 TABLET PO PRN ×2 (11:07→17:21)
[2020-09-01] MEDS: *HR* OxyCODONE/APAP 10/325 TABLET PO PRN ×2 (00:21→06:41)
[2020-09-01 03:14] LABS: Hematocrit 37.1 % (37.5-50.1); Hemoglobin 11.3 g/dL (12.9-16.9); Mean Corpuscular HGB Conc 30.5 g/dL (31.6-35.5); Mean Corpuscular Volume 95.4 fL (83.0-100.0); Platelet Count 250 K/mcL (140-400); Red Blood Count 3.89 M/mcL (4.19-5.50); Red Cell Distribution Width 14.9 % (11.5-14.5); White Blood Count 13.8 K/mcL (4.3-11.1)
[2020-09-01 03:23] LABS: BUN/Creatinine Ratio 35 (6-26); Blood Urea Nitrogen 24 mg/dL (8-23); Calcium 8.6 mg/dL (8.6-10.3); Carbon Dioxide 38 mEq/L (23-29); Chloride 93 mEq/L (98-107); Glucose 153 mg/dL (70-105); Magnesium 1.9 mg/dL (1.6-2.6); Osmolality,Calculated 293 (280-300); Potassium 3.6 mEq/L (3.5-5.1); Sodium 138 mEq/L (136-145); eGFR For African Americans > 60 (> 60); eGFR For Non-African Americans > 60 (> 60)
[2020-09-01] MEDS: Ipratropium/Albuterol Neb 3 ML IH SCH ×2 (04:18→10:53)
[2020-09-01] MEDS: *HR* Enoxaparin 40 MG/0.4 ML SYRINGE SQ SCH (05:06)
[2020-09-01] MEDS: Ondansetron ODT 4 MG TAB.RAPDIS PO PRN (05:07)
[2020-09-01] MEDS: Ondansetron 4 MG/2 ML VIAL IVP PRN (06:40)
[2020-09-01 06:59] VITALS: BP 100/65; TEMP 97.8; O2SAT 93
[2020-09-01] MEDS: Potassium Chloride Elixir 20 MEQ/15 ML UDC PO SCH (07:22)
[2020-09-01] MEDS: Simethicone 80 MG TAB.CHEW PO SCH (07:23)
[2020-09-01] MEDS: Magnesium Oxide 400 MG TABLET PO SCH (07:23)
[2020-09-01] MEDS: Aspirin 81 MG TAB.CHEW PO SCH (07:23)
[2020-09-01] MEDS: Loratadine 10 MG TABLET PO SCH (07:23)
[2020-09-01] MEDS: DilTIAZem CD (24hr) 120 MG CAP.ER.24H PO SCH (07:24)
[2020-09-01] MEDS: lisinopriL 10 MG TABLET PO SCH (07:24)
[2020-09-01] MEDS: Insulin LISPRO 300 UNITS/3 ML VIAL SUBQ SCH (07:25)
[2020-09-01] MEDS: Nystatin POWDER 30 GM BOTTLE TP SCH (07:26)
[2020-09-01] MEDS: Bisacodyl 10 MG RECTAL SUPPOSITORY RC SCH (07:26)
[2020-09-01] MEDS: Furosemide 40 MG/4 ML VIAL IVP SCH (07:26)
[2020-09-01 08:12] VITALS: PULSE 83
[2020-09-01] MEDS: Budesonide/Formoterol 160/4.5 1 PUFF INH IH SCH (10:53)
== END 2020-09-01 11:10 | DRG 871 ==
LOC: EMEROOARM 20:10 → ICNU 20:10 → SUATTDRO 08-26 01:09 → ICNU 08-26 01:53 → SUATTDRO 08-26 06:41 → 2NNU 08-29 02:54
PROVIDERS: ADMIT Pharmacist; ATTEND Internal Medicine